=== PATIENT | female | born 1980 | race Two or more races ===

== ENCOUNTER → 2017-06-19 | Outpatient (CLI) | payer OTHER | END | disposition home or self-care (01) | LOC: PPH VACUNA 14:46 | DX: Z23 Encounter for immunization (principal) ==

== ENCOUNTER → 2019-10-24 | Outpatient (CLI) | payer OTHER | END | disposition home or self-care (01) | LOC: PRENATAL 14:30 | DX: O36.80X9 Pregnancy with inconclusive fetal viability, other fetus (principal); O34.11 Maternal care for benign tumor of corpus uteri, first trimester; Z3A.12 12 weeks gestation of pregnancy ==

== ENCOUNTER 2021-06-07 09:31 | Inpatient (IN) | payer OTHER ==
[~2021-06-07] VITALS: Ht 165.1 cm; Wt 2.3 kg
[2021-06-07] MEDS ORDERED: PRENATAL + DHA1 EAC1 (10:10)
== END 2021-06-09 10:28 | disposition home or self-care (01) | DRG 807 ==
LOC: LDR 09:31 → OB/GYN 09:31
PROVIDERS: ADMIT Obstetrics & Gynecology Maternal & Fetal Medicine; ATTEND Obstetrics & Gynecology Maternal & Fetal Medicine
PROC: 10E0XZZ Delivery of Products of Conception, External Approach (ICD-10-PCS; principal; 2021-06-07)
PROC: 0KQM0ZZ Repair Perineum Muscle, Open Approach (ICD-10-PCS; 2021-06-07)
PROC: 0W8NXZZ Division of Female Perineum, External Approach (ICD-10-PCS; 2021-06-07)
PROC: 4A1HXFZ Monitoring of Products of Conception, Cardiac Rhythm, External Approach (ICD-10-PCS; 2021-06-07)
DX: O70.1 Second degree perineal laceration during delivery (principal); Z37.0 Single live birth; O42.013 Preterm premature rupture of membranes, onset of labor within 24 hours of rupture, third trimester; Z3A.36 36 weeks gestation of pregnancy